=== PATIENT | female | born 1980 | race Caucasian/White ===

== ENCOUNTER 2021-04-19 16:17 | Emergency (ER) | payer OTHER ==
[~2021-04-19 16:17] MED LIST: AMOXICILLIN500 MG PO; BACLOFEN 10MG T10 MG PO
[2021-04-19] MEDS ORDERED: ROBAXIN500 MG PO (20:14)
[2021-04-19] MEDS ORDERED: IBUPROFEN800 MG PO (20:14)
== END 2021-04-19 20:40 | disposition home or self-care (01) ==
LOC: FER 16:17
DX: S13.4XXA Sprain of ligaments of cervical spine, initial encounter (principal); S70.12XA Contusion of left thigh, initial encounter; F17.210 Nicotine dependence, cigarettes, uncomplicated; V43.62XA Car passenger injured in collision with other type car in traffic accident, initial encounter; Y92.410 Unspecified street and highway as the place of occurrence of the external cause
CPT/HCPCS: 73552